=== PATIENT | male | born 1965 ===

== ENCOUNTER 2018-09-21 09:53 | Day surgery (SDC) | payer BC, SELFPAY ==
--- NOTE | 2018-09-21 | PATH_ITS ---
[facility] Accession Number: [id number] . 01 Material submitted: . POLYP @ 100CM X3 . 02 Diagnosis: Colon Polyps at 100 cm: Fragments of tubular adenoma (three polyps removed). Melanosis coli. MRV/09/24/2018 . 02 Electronically signed: . Alexander Gurrola MD, PhD, Pathologist NPI- [id number] . 01 Gross description: . POLYP @ 100CM X3: Received in formalin are multiple fragment(s) of chavez, soft tissue measuring 1.3 x 0.4 x 0.3 cm in aggregate submitted entirely in 1 cassette(s) /CKI /CKI . 02 Pathologist provided ICD-10: D12.6 . 02 CPT . 346899 Specimen Comment: A duplicate report has been generated due to demographic updates. Performed at: 01 [facility] [address] [place] [address], [place], [place] [id number] MD Raymon Bustos MD Phone: [phone] Performed at: 02 [facility] [place] [address] [place], [place] [id number] MD Marimar Nance MD Phone: [phone]
[2018-09-21 10:10] VITALS: BP 119/87; PULSE 68; RESP 16; TEMP 36.5; O2SAT 96; BMI 39.5
[2018-09-21] MEDS: SODIUM CHLORIDE 0.9% 1,000 ML 200 ML IV (10:29)
--- NOTE | 2018-09-21 10:31 | PM.HP.1 ---
History of Present Illness Date Patient Seen: 09/21/18 Time Patient Seen: 10:22 Chief complaint: [id number] SCREENING COLONOSCOPY Narrative: Patient ever screening colonoscopy. No family history of colon cancer. No blood in his stool. This is his 1st exam. He is 53 Patient History Medical History Hypothyroidism (Chronic) Family & Social History Social History: household members spouse Meds Home Medications Medication Instructions Recorded Confirmed Type levothyroxine 75 mcg PO DAILY 09/21/18 09/21/18 History Allergies Allergy/AdvReac Type Severity Reaction Status Date / Time No Known Drug Allergies Allergy Verified 09/21/18 10:04 Review of Systems Review of Systems All systems reviewed & are unremarkable except as noted in HPI and below Musculoskeletal Comments: Ankle arthritis Exam Vital Signs (past 8 hours): - 09/21/18 10:10 Temperature 97.7 F Pulse Rate 68 Respiratory Rate 16 Blood Pressure 119/87 Pulse Oximetry 96 Oxygen Delivery Method Room Air Narrative Exam Narrative: Co Operative overweight patient no apparent distress. Lungs are clear to auscultation no rales or rhonchi. Heart regular rate and rhythm without murmur gallop. Abdomen is soft nontender without mass protuberant. Alert and oriented x3. Assessment & Plan Plan: Assessment/Plan Narrative: For screening colonoscopy. This is 1st. I have discussed the procedure and the rationale with the patient including risks of bleeding, perforation which would necessitate a major operation, failure to find remove all lesions and the potential to tattoo. They appeared to understand and wished to proceed.
[2018-09-21] MEDS: fentaNYL 250 MCG/5 ML INJ IV (10:36)
--- NOTE | 2018-09-21 10:36 | PM.PREOP ---
Pre-operative Note Interval Note Pre-op Check: Yes History & Physical exam performed today by Physician Changes: No ASA Class (for procedural sedation): II
[2018-09-21] MEDS: MIDAZOLAM 5 MG/5 ML VIAL IV (10:37)
[2018-09-21 11:11] VITALS: BP 133/88; PULSE 67; RESP 15; TEMP 36.6; O2SAT 94
--- NOTE | 2018-09-21 11:13 | PM.OP.ENDO ---
Operative Date/Time/Diagnoses Date of procedure: 09/21/18 Time of procedure: 11:07 Pre-op diagnosis: Screening colonoscopy. This is his 1st colonoscopy Post-op diagnosis: same (Three small polyps removed) Procedure & Clinicians Study performed: Colonoscopy with cold biopsy Same procedure as scheduled: Yes Indications: Screening due to age. Surgeon: Moris Suarez Procedure Notes SCOAP/Timeout: Performed Procedure in detail: The patient was placed in the left lateral decubitus position and underwent IV sedation directed by the surgeon consisting of fentanyl and Versed. Digital exam was normal except I really could not feel anything but the most distal portion of his prostate due to his body habitus. The scope was inserted and advanced through the rectum into the sigmoid, descending, transverse, and ascending colon.. The cecum was reached identified by the ileocecal valve and the appendiceal opening. The ileocecal valve was successfully cannulated. The terminal ileum was normal in appearance. The scope was gradually brought out. Three small Polyps were found at between 100 and 100 20 cm from the anal verge. All were placed in the same container. The scope ultimately was attempted to be retroflexed in the rectum. I was unsuccessful. The scope was slowly brought through the anus. No lesions were seen. The scope was removed and the patient tolerated the procedure well Scope withdrawal time: 16 min Sedation minutes: 31 Findings: polyp (Three small polyps removed) Specimen(s): other (Polyps all placed in 1 container due to proximity to 1 another) Complications: none Recommendations: Colonscopy in 5 years (If polyps not neoplastic 10 years) Follow up: as needed Disposition: PACU
[2018-09-21 11:17] VITALS: BP 132/92; PULSE 60; RESP 16; O2SAT 94
--- NOTE | 2018-09-21 11:19 | SUR.PHASEI ---
1111: Pt arrives to PACU s/p colonoscopy with polypectomy. Pt arousable to voice, falls back asleep, denies pain and is hemodynamically stable. Report rec'd from Endo RN and Pt resting at this time.
[2018-09-21 11:22] VITALS: BP 124/87; PULSE 62; RESP 17; O2SAT 95
[2018-09-21 11:26] VITALS: BP 117/82; PULSE 60; RESP 17; TEMP 36.3; O2SAT 95
[2018-09-21 11:50] VITALS: BP 122/87; PULSE 64; RESP 15; O2SAT 96
== END 2018-09-21 16:00 | disposition home or self-care (01) ==
PROVIDERS: PCP Internal Medicine; Visit Provider Specialist
PROC: 0DJD8ZZ Inspection of Lower Intestinal Tract, Via Natural or Artificial Opening Endoscopic (ICD-10-PCS; CPT 45378; principal; 2018-09-21 10:45)
DX: Z12.11 Encounter for screening for malignant neoplasm of colon (principal); E03.9 Hypothyroidism, unspecified; D12.6 Benign neoplasm of colon, unspecified
CPT/HCPCS: 45380; 99152; 99153; J2250; J3010

== ENCOUNTER 2019-05-09 14:50 | Emergency (ER) | payer BC, SELFPAY ==
--- NOTE | 2019-05-09 14:53 | PC.NURSE ---
Pt in BR when I went out for him to go to room.
[2019-05-09 14:56] VITALS: BP 153/103; PULSE 72; RESP 15; TEMP 36.8; O2SAT 96; BMI 43.6
--- NOTE | 2019-05-09 15:05 | DI.RAD.S_ITS ---
PROCEDURE: XR CHEST 1V INDICATIONS: chest pain TECHNIQUE: One view of the chest was acquired. COMPARISON: None. FINDINGS: Surgical changes and devices: None. Lungs and pleura: Lungs are clear. No pleural effusions or pneumothorax. Mediastinum: Mediastinal contours appear normal. Heart size is normal. Bones and chest wall: No suspicious bony lesions. Overlying soft tissues appear unremarkable. IMPRESSION: No acute cardiopulmonary disease. Dictated by: Jose Carlos Zaidi M.D. on 05/09/2019 at 16:07 Approved by: Jose Carlos Zaidi M.D. on 05/09/2019 at 16:08
--- NOTE | 2019-05-09 15:07 | ED.CHESTPAIN ---
HPI - Chest Pain General Chief Complaint: Chest Pain Stated Complaint: Chest Pressure, Pains down arm Time Seen by Provider: 05/09/19 15:05 Source: patient Mode of arrival: ambulatory History of Present Illness HPI narrative: Patient is a 54-year-old male who presents with left-sided chest pain. It has actually been ongoing for number of months. It comes and goes he can't really tell if anything makes it better or worse. Today however when he woke up at 5:30 a.m. in the morning had constant pain in 1 area on the left side of his chest. He says sometimes he is short of breath with exertion he leads a more sedentary lifestyle. He denies any recent travel. He has had some swelling in his lower legs. Pain is overall nonradiating. He took 2 aspirin at 11:00 a.m. today. He says it typically goes away and today it is pretty unrelenting. MD complaint: chest pain Related Data Home Medications Medication Instructions Recorded Confirmed Fish Oil 1 cap PO DAILY 05/09/19 05/09/19 latanoprost 1 drp OPHTHALMIC (EYE) BEDTIME 05/09/19 05/09/19 multivitamin 1 tab PO DAILY 05/09/19 05/09/19 thyroid (pork) [Nature-Throid] 1 tab PO DAILY 05/09/19 05/09/19 timolol maleate 1 drp OPHTHALMIC (EYE) BEDTIME 05/09/19 05/09/19 Allergies Allergy/AdvReac Type Severity Reaction Status Date / Time No Known Drug Allergies Allergy Verified 05/09/19 15:42 Review of Systems Review of Systems GENERAL: Denies chills, fatigue, malaise, fever, sweats, travel HEENT: Denies sinus pain, ear pain, sore throat, difficulty swallowing, neck pain RESPIRATORY: Denies dyspnea, cough, wheezing, hemoptysis, sputum. CARDIOVASCULAR: See HPI GASTROINTESTINAL: Denies nausea, vomiting, abdominal pain, diarrhea, constipation, melena. : Denies dysuria, frequency, incontinence, hematuria, urinary retention, flank pain. MUSCULOSKELETAL: Denies weakness, joint pain, or bony pain SKIN: No rash, no erythema, no pruritus NEUROLOGIC: Denies weakness, dizziness, headache, numbness, change in speech, confusion PSYCHIATRIC: No concerning psychosocial issues. 12 point review of systems is negative except for those stated above and HPI [facility] Medical History Hypothyroidism (Chronic) Social History household members: spouse Smoking Status: Never smoker Social History household members: spouse Smoking Status: Never smoker Exam Initial Vital Signs Initial Vital Signs: Vital Signs Temperature 98.2 F 05/09/19 14:56 Pulse Rate 72 05/09/19 14:56 Respiratory Rate 15 05/09/19 14:56 Blood Pressure 153/103 H 05/09/19 14:56 Pulse Oximetry 96 05/09/19 14:56 GENERAL: overweight alert male HEENT: Head atraumatic,EOMI, pupils reactive, CARDIOVASCULAR: Regular rate and rhythm without murmurs, rubs or gallops. RESPIRATORY: Breath sounds equal bilaterally, no wheezes rales or rhonchi. ABDOMEN: Soft, nontender. Normoactive bowel sounds all 4 quadrants. No guarding or rebound. EXTREMITIES: Normal range of motion, no clubbing or edema. Neurovascularly intact NEUROLOGICAL: Alert and oriented x4.Normal gait and speech. SKIN: Warm, dry, no laceration, no petechiae, no rashes or lesions. Scores HEART Score Heart Score history: Slightly Suspicious Heart Score EKG: Normal Heart Score Age: 45-64 years old Heart Score risk factors: No known risk factors Heart Score troponin: < or = to normal limit Heart Score Total: 1 PERC Score Age greater than or equal to 50 years: Yes Heart rate greater than or equal to 100 bpm: No Room Air O2 Sat less than 95%: No Unilateral leg swelling: No Recent trauma or surgery: No Hemoptysis: No Prior PE or DVT: No Hormone Use: No Total PERC Score: 1 Course Orders Ordered: ED Orders 05/09/19 15:05 XR chest 1V Stat EKG-12 Lead Stat 05/09/19 15:09 B Type Natriuretic Peptide Stat Complete Blood Count AUTO DIFF Stat Comprehensive Metabolic Panel Stat D Dimer Stat Lipase Stat Troponin & CK Cardiac Panel Stat Discontinued Medications Ketorolac Tromethamine (Toradol) 30 mg IV NOW ONE Stop: 05/09/19 15:06 Last Admin: 05/09/19 15:26 Dose: 30 mg Vital Signs - 8 hr 05/09/19 14:56 05/09/19 15:32 05/09/19 16:07 Temperature 98.2 F Pulse Rate 72 63 65 Respiratory Rate 15 18 22 Blood Pressure 153/103 H Blood Pressure [Left Arm] 136/97 H 125/87 Pulse Oximetry 96 93 93 05/09/19 17:10 Temperature Pulse Rate 62 Respiratory Rate 18 Blood Pressure Blood Pressure [Left Arm] 116/80 Pulse Oximetry 95 MDM - Chest Pain Lab Data Attestation: I reviewed the patient's lab results. Result diagrams: 05/09/19 15:09 05/09/19 15:09 Lab Results 05/09/19 05/09/19 05/09/19 Range/Units 15:09 15:09 15:09 WBC 7.8 (4.5-11.0) X10^3/uL RBC 5.04 (4.5-5.9) X10^6/uL Hgb 15.4 (13.5-17.5) g/dL Hct 45.2 (41-53) % MCV 89.7 (80-100) fL MCH 30.5 (26-34) PG MCHC 34.0 (30-36) % RDW 13.0 (11.6-14.8) % Plt Count 273 (150-400) X10^3/uL Neut % (Auto) 63.8 (50-75) % Lymph % (Auto) 25.0 (25-40) % Desha % (Auto) 9.2 (3-14) % Eos % (Auto) 1.1 L (2-4) % Baso % (Auto) 0.9 (0-2) % Neut # (Auto) 5000 (9978-8969) /uL Lymph # (Auto) 2000 (7931-8790) /uL Desha # (Auto) 700 (0-900) /uL Eos # (Auto) 100 (0-450) /uL Baso # (Auto) 100 (0-100) /uL D-Dimer < 200 (<230) ng/mL Sodium 141 (137-145) mmol/L Potassium 4.0 (3.4-5.1) mmol/L Chloride 104 (98-107) mmol/L Carbon Dioxide 27 (22-32) mmol/L BUN 17 (9-20) mg/dL Creatinine 0.80 (0.66-1.25) mg/dL Estimated GFR > 60.0 (>60) mL/min BUN/Creatinine Ratio 21.3 (6-22) Glucose 95 (70-100) mg/dL Calcium 9.3 (8.4-10.2) mg/dL Total Bilirubin 0.4 (0.2-1.3) mg/dL AST 33 (17-59) IU/L ALT 62 (21-72) IU/L Alkaline Phosphatase 71 (38-126) U/L Total Creatine Kinase 106 (55-170) U/L CK-MB (CK-2) 0.86 (<2.37) ng/mL CK-MB (CK-2) Rel Index 0.8 L (1.5-5.0) % Troponin I < 0.012 (0.01-0.034) ng/mL B-Natriuretic Peptide < 100 (<100) Total Protein 7.7 (6.3-8.2) g/dL Albumin 4.5 (3.5-5.0) g/dL Globulin 3.2 (1.7-4.1) g/dL Albumin/Globulin Ratio 1.4 (1.0-2.8) Lipase 81 (23-300) U/L Urine Dip Bedside Urine Glucose Negative Bedside Urine Bilirubin - Negative Bedside Urine Ketone - Negative Urine Specific [place] 1.015 Bedside Urine Occult Blood - Negative Bedside Urine pH 8.0 Bedside Urine Protein - Negative Bedside Urine Urobilinogen - Negative Bedside Urine Nitrite - Negative Bedside Urine Leukocytes - Negative Esterase Imaging Data Chest x-ray: Radiologist's impression: PROCEDURE: XR CHEST 1V INDICATIONS: chest pain TECHNIQUE: One view of the chest was acquired. COMPARISON: None. FINDINGS: Surgical changes and devices: None. Lungs and pleura: Lungs are clear. No pleural effusions or pneumothorax. Mediastinum: Mediastinal contours appear normal. Heart size is normal. Bones and chest wall: No suspicious bony lesions. Overlying soft tissues appear unremarkable. IMPRESSION: No acute cardiopulmonary disease. Dictated by: Jose Carlos Zaidi M.D. on 05/09/2019 at 16:07 ECG Data Attestation: I personally reviewed and interpreted this ECG as follows: Prior ECG tracings: not available for review Interpretation: EKG 1.: Normal sinus rhythm rate 66. Interval [address] changes no T-wave inversions no priors to compare EKG 2. Sinus rhythm rate 64. Interval 219 no changes from prior MDM Narrative Medical decision making narrative: The patient has been having ongoing pain for a few weeks consistent today but has a negative troponin after more than 6 hours of pain. Pain does not quite sound like cardiac. Low PERC score negative D-dimer unlikely to be PE. I spoke with and patient strongly recommended outpatient stress test and to return to ED if symptoms worsen. They both agreed and understood. I discussed all findings with the patient and spouse, Education has been performed regarding treatment plan, diagnosis, warning signs and symptoms and all concerns have been addressed. Verbally agree with and understood all of the above. Discharge Plan Departure Patient Disposition: Home Clinical Impression: Atypical chest pain Discharge Date/Time: 05/09/19 17:11 Interventions: ED Discharge Assessment Last Done: 05/09/19 17:11 Instructions: DI for Atypical Chest Pain Activity Restrictions/Additional Instructions: *You have been diagnosed with atypical chest *What to do: You still need further cardiac testing such as an echocardiogram and a stress test. However her workup in the emergency department today is reassuring. *Continue to take medications as directed Aspirin 81 mg once a day *Follow up with your primary care provider in 2-3 days *Return to ER if you should have increasing chest pain changing chest pain or any new, worsening or concerning symptoms Prescriptions: No Action latanoprost 0.005 % drops 1 drp ophthalmic (eye) BEDTIME RF: 0 timolol maleate 0.5 % drops 1 drp ophthalmic (eye) BEDTIME RF: 0 Nature-Throid 65 mg Tablet 1 tab PO DAILY RF: 0 Fish Oil 1 cap PO DAILY RF: 0 multivitamin 1 tab PO DAILY RF: 0 Referrals: Pranay Nelson MD [Primary Care Provider] -
[2019-05-09 15:23] LABS: Add Manual Diff / Slide Review NO; Basophils Absolute Auto 100 /uL (0-100); Basophils Percent Auto 0.9 % (0-2); Eosinophils Absolute Auto 100 /uL (0-450); Eosinophils Percent Auto 1.1 % (2-4); Hematocrit 45.2 % (41-53); Hemoglobin 15.4 g/dL (13.5-17.5); Lymphocytes Absolute Auto 2000 /uL (1100-4500); Mean Corpuscular Hemoglobin 30.5 PG (26-34); Mean Corpuscular Volume 89.7 fL (80-100); Monocytes Absolute Auto 700 /uL (0-900); Monocytes Percent Auto 9.2 % (3-14); Neutrophils Absolute Auto 5000 /uL (1500-7000); Neutrophils Percent Auto 63.8 % (50-75); Platelet Count 273 X10^3/uL (150-400); Red Blood Cell Count 5.04 X10^6/uL (4.5-5.9); White Blood Cell Count 7.8 X10^3/uL (4.5-11.0)
[2019-05-09] MEDS: KETOROLAC 60 MG/2 ML VIAL 30 MG IV (15:26)
[2019-05-09 15:32] VITALS: BP 136/97; PULSE 63; RESP 18; O2SAT 93
[2019-05-09 15:36] LABS: Alanine Aminotransferase 62 IU/L (21-72); Albumin 4.5 g/dL (3.5-5.0); Albumin Globulin Ratio 1.4 (1.0-2.8); Alkaline Phosphatase 71 U/L (38-126); Aspartate Aminotransferase 33 IU/L (17-59); BUN Creatinine Ratio 21.3 (6-22); Bilirubin Total 0.4 mg/dL (0.2-1.3); Blood Urea Nitrogen 17 mg/dL (9-20); Calcium 9.3 mg/dL (8.4-10.2); Carbon Dioxide 27 mmol/L (22-32); Chloride 104 mmol/L (98-107); Creatine Kinase 106 U/L (55-170); Estimated Glomerular Filt Rate > 60.0 mL/min (>60); Globulin 3.2 g/dL (1.7-4.1); Glucose 95 mg/dL (70-100); HEMOLYSIS 17 (0-50); Lipase 81 U/L (23-300); Sodium 141 mmol/L (137-145); Total Protein 7.7 g/dL (6.3-8.2)
[2019-05-09 15:40] LABS: D Dimer < 200 ng/mL (<230)
[2019-05-09 15:48] LABS: Troponin I < 0.012 ng/mL (0.01-0.034)
[2019-05-09 15:49] LABS: B Type Natriuretic Peptide < 100 (<100)
[2019-05-09 15:54] LABS: CKMB % Relative Index 0.8 % (1.5-5.0); Creatine Kinase MB 0.86 ng/mL (<2.37)
[2019-05-09 16:07] VITALS: BP 125/87; PULSE 65; RESP 22; O2SAT 93
[2019-05-09 17:10] VITALS: BP 116/80; PULSE 62; RESP 18; O2SAT 95
== END 2019-05-09 17:11 | disposition home or self-care (01) ==
PROVIDERS: Emergency Provider Emergency Medicine; PCP Internal Medicine
DX: R07.89 Other chest pain (principal)
CPT/HCPCS: 36591; 71045; 80053; 81003; 82550; 82553; 83690; 83880; 84484; 85025; 85379; 93005; 93010; 96374; 99283; 99285; J1885